=== PATIENT | female | born 1970 | race Two or more races ===

== ENCOUNTER 2023-04-30 00:12 | Inpatient (IN) | payer MEDICAID, OTHER ==
[~2023-04-30] VITALS: Ht 188 cm; Wt 214.3 kg
[2023-04-30] VITALS (8 sets, daily range): BP systolic 132; BP diastolic 82; PULSE 68–100; RESP 14–26; TEMP 98.4; O2SAT 96–98
[2023-04-30 01:23] LABS: Basophils # (auto) 0 10 ^3/uL (0-0.2); Basophils % (auto) 0.4 % (0.0-2.0); Eosinophils # (auto) 0.1 10 ^3/uL (0-0.8); Eosinophils % (auto) 1.9 % (0.0-7.0); Hematocrit 47.4 % (36.0-46.0); Hemoglobin 15.9 g/dL (12.2-16.2); Lymphocytes # (auto) 2.3 10 ^3/uL (0.4-5.4); Lymphocytes % (auto) 31.4 % (10.0-50.0); Mean Corpuscular Hemoglobin 31.6 pg (28.0-32.0); Mean Corpuscular Hgb Conc. 33.5 g/dL (32.0-36.0); Mean Corpuscular Volume 94.2 fL (80.0-100.0); Monocytes # (auto) 0.6 10 ^3/uL (0-1.3); Monocytes % (auto) 7.8 % (0.0-12.0); Neutrophils # (auto) 4.4 10 ^3/uL (1.6-8.6); Neutrophils % (auto) 58.5 % (37.0-80.0); Nucleated Red Blood Cells % 0.2 %; Red Blood Cells 5.03 10^6/uL (4.0-5.20); Red Cell Distribution Width 14.7 % (11.8-14.3); White Blood Cell 7.4 10^3/uL (4.4-10.8)
[2023-04-30 01:38] LABS: Albumin 3.6 g/dL (3.4-5.0); BUN/Creatinine Ratio 18.8 (10.0-20.0); Calcium 8.6 mg/dL (8.5-10.1); Magnesium 2.1 mg/dL (1.6-2.6); Potassium 3.8 mmol/L (3.5-5.1)
[2023-04-30 01:41] LABS: Total Protein 7.7 g/dL (6.4-8.2)
[2023-04-30] MEDS ORDERED: LORazepam 2MG/ML-1ML VIAL IV ONE (02:15)
[2023-04-30] MEDS ORDERED: ALBUTEROL SULF 2.5 MG/0.5ML(0.5%) NEB SOLN NEB ONE (05:45)
[2023-04-30] MEDS ORDERED: DexAMETHasone SOD PHOS 10MG/1ML VIAL INJ IV ONE (05:45)
[2023-04-30] MEDS ORDERED: METO25TA93 PO (08:29)
[2023-04-30] MEDS ORDERED: BICT1TAB PO (08:29)
[2023-04-30] MEDS ORDERED: ATOR40TA52 PO (08:29)
[2023-04-30] MEDS ORDERED: SPIR25TA8 PO (08:29)
[2023-04-30] MEDS ORDERED: APIX5TAB PO (08:29)
[2023-04-30] MEDS ORDERED: MONT-8 PO (08:29)
[2023-04-30] MEDS ORDERED: PREG100C PO (08:29)
[2023-04-30] MEDS ORDERED: METF500S3 PO (08:29)
[2023-04-30] MEDS ORDERED: BACL20TA PO (08:29)
[2023-04-30] MEDS ORDERED: TIOT17SP IN (08:31)
[2023-04-30] MEDS ORDERED: BUDE2SUS3 IN (08:31)
[2023-04-30 08:48] LABS: Urine Bacteria NONE SEEN /hpf (None Seen); Urine Blood Negative /uL (Negative); Urine Clarity Clear (Clear); Urine Color Yellow (Yellow); Urine Protein, UAD Negative (Negative); Urine Specific Gravity 1.017 (1.001-1.035); Urine Urobilinogen Normal (Negative); Urine WBC <1 /hpf (0 - 5); Urine pH 5.5 (5.0-8.0)
[2023-04-30] MEDS ORDERED: DEXTROSE (50%) 50ML SYRG IV PRN (09:00)
[2023-04-30] MEDS ORDERED: MORPHINE SULFATE INJ 2 MG/ml SYRG IV PRN (09:00)
[2023-04-30] MEDS ORDERED: METOCLOPRAMIDE HCL 5MG/ml INJ 2ml VIAL IV PRN (09:00)
[2023-04-30 09:34] LABS: Base Excess -2.2 mmol/L (-2.0-2.0)
[2023-04-30] MEDS ORDERED: METOPROLOL SUCCINATE XL 50 MG TAB PO SCH (10:00)
[2023-04-30] MEDS ORDERED: PREGABALIN 25 MG CAP PO ONE (10:00)
[2023-04-30] MEDS: MONTELUKAST SODIUM 10 MG TAB PO SCH ×2 (10:00→22:46)
[2023-04-30] MEDS: AZITHROMYCIN 500MG/ 250ML 250 ML IV SCH (10:01)
[2023-04-30] MEDS: cefTRIAXone 1GM/50ML D5W 50 ML IV SCH (10:01)
[2023-04-30] MEDS: PANTOPRAZOLE 40 MG/10 ML VIAL INJ IV SCH (10:02)
[2023-04-30] MEDS: APIXABAN 5 MG TAB PO SCH ×2 (10:03→22:46)
[2023-04-30] MEDS: SPIRONOLACTONE 25 MG TAB PO SCH (10:03)
[2023-04-30] MEDS: SODIUM CHLORIDE 0.9% 1,000 ML IV SCH (10:05)
[2023-04-30 10:12] LABS: INR 1.08 (0.9-1.15); Prothrombin Time 11.3 sec (9.3-11.8)
[2023-04-30] MEDS: ALBUTEROL SULF 2.5 MG/0.5ML(0.5%) NEB SOLN NEB SCH ×4 (10:15→23:04)
[2023-04-30] MEDS: IPRATROPIUM BROM 0.5 MG/2.5ML INH SOL NEB SCH ×4 (10:15→23:04)
[2023-04-30] MEDS: ACCU-CHEK COMFORT CURVE STRIP VI SCH ×3 (11:40→22:37)
[2023-04-30] MEDS: InsuLIN REG 1unit/0.01ml Soln (100units/ml) SC SCH ×3 (11:44→22:45)
[2023-04-30] MEDS: DexAMETHasone SOD PHOS 4 MG/1ML SDV INJ IV SCH ×2 (15:09→20:15)
[2023-04-30] MEDS: ATORVASTATIN 20 MG TAB PO SCH (22:46)
[2023-05-01] VITALS (12 sets, daily range): BP systolic 121–129; BP diastolic 65–98; PULSE 87–108; RESP 16–20; TEMP 97.3–97.7; O2SAT 94–98
[2023-05-01] MEDS: DexAMETHasone SOD PHOS 4 MG/1ML SDV INJ IV SCH ×4 (00:53→17:57)
[2023-05-01] MEDS: SODIUM CHLORIDE 0.9% 1,000 ML IV SCH ×2 (00:55→12:25)
[2023-05-01] MEDS: IPRATROPIUM BROM 0.5 MG/2.5ML INH SOL NEB SCH ×3 (02:00→21:02)
[2023-05-01] MEDS: ALBUTEROL SULF 2.5 MG/0.5ML(0.5%) NEB SOLN NEB SCH ×3 (02:00→21:02)
[2023-05-01] MEDS: ACETAMINOPHEN 325 MG TAB PO PRN ×2 (02:53→22:23)
[2023-05-01] MEDS: LORazepam 2MG/ML-1ML VIAL IV PRN (02:53)
[2023-05-01] MEDS ORDERED: CARVEDILOL 3.125 MG TAB PO ONE (03:45)
[2023-05-01] MEDS: ACCU-CHEK COMFORT CURVE STRIP VI SCH ×4 (06:16→22:00)
[2023-05-01] MEDS: InsuLIN REG 1unit/0.01ml Soln (100units/ml) SC SCH ×4 (06:26→22:35)
[2023-05-01] MEDS ORDERED: ALBUTEROL SULF 2.5 MG/0.5ML(0.5%) NEB SOLN ONE (06:49)
[2023-05-01] MEDS ORDERED: IPRATROPIUM BROM 0.5 MG/2.5ML INH SOL ONE (06:49)
[2023-05-01 07:00] LABS: Basophils # (auto) 0 10 ^3/uL (0-0.2); Basophils % (auto) 0.4 % (0.0-2.0); Eosinophils # (auto) 0 10 ^3/uL (0-0.8); Eosinophils % (auto) 0.5 % (0.0-7.0); Hematocrit 45.2 % (41.0-53.0); Hemoglobin 15.1 g/dL (13.5-17.5); Lymphocytes # (auto) 1.2 10 ^3/uL (0.4-5.4); Lymphocytes % (auto) 12.4 % (10.0-50.0); Mean Corpuscular Hemoglobin 32.2 pg (28.0-32.0); Mean Corpuscular Hgb Conc. 33.4 g/dL (32.0-36.0); Mean Corpuscular Volume 96.3 fL (80.0-100.0); Monocytes # (auto) 0.3 10 ^3/uL (0-1.3); Monocytes % (auto) 2.7 % (0.0-12.0); Neutrophils # (auto) 7.9 10 ^3/uL (1.6-8.6); Nucleated Red Blood Cells % 0.2 %; Red Blood Cells 4.69 10^6/uL (4.5-5.90); Red Cell Distribution Width 14.7 % (11.8-14.3); White Blood Cell 9.4 10^3/uL (4.4-10.8)
[2023-05-01] MEDS ORDERED: dilTIAZem 25 MG/5 ML VIAL IV ONE (07:00)
[2023-05-01 07:42] LABS: Potassium 4.5 mmol/L (3.5-5.1)
[2023-05-01 07:52] LABS: Albumin 3.3 g/dL (3.4-5.0); BUN/Creatinine Ratio 15.5 (10.0-20.0); Bilirubin, Total 0.9 mg/dL (0.2-1.0); Calcium 8.7 mg/dL (8.5-10.1); Total Protein 7.9 g/dL (6.4-8.2)
[2023-05-01] MEDS: SPIRONOLACTONE 25 MG TAB PO SCH (09:30)
[2023-05-01] MEDS: APIXABAN 5 MG TAB PO SCH ×2 (09:30→22:24)
[2023-05-01] MEDS: cefTRIAXone 1GM/50ML D5W 50 ML IV SCH (09:30)
[2023-05-01] MEDS: PANTOPRAZOLE 40 MG/10 ML VIAL INJ IV SCH (09:30)
[2023-05-01] MEDS: dilTIAZem HCL 60 MG TAB PO SCH ×2 (10:41→17:57)
[2023-05-01] MEDS: AZITHROMYCIN 500MG/ 250ML 250 ML IV SCH (10:45)
[2023-05-01] MEDS ORDERED: CARVEDILOL 3.125 MG TAB PO SCH (22:00)
[2023-05-01] MEDS: MONTELUKAST SODIUM 10 MG TAB PO SCH (22:00)
[2023-05-01] MEDS: ATORVASTATIN 20 MG TAB PO SCH (22:24)
[2023-05-01] MEDS: DOCUSATE SOD 100 MG CAP PO PRN (22:26)
[2023-05-02] VITALS (18 sets, daily range): BP systolic 116–148; BP diastolic 64–83; PULSE 68–115; RESP 14–20; TEMP 97.1–98.6; O2SAT 95–100
[2023-05-02] MEDS: DexAMETHasone SOD PHOS 4 MG/1ML SDV INJ IV SCH ×5 (00:15→23:12)
[2023-05-02] MEDS: dilTIAZem HCL 60 MG TAB PO SCH ×5 (00:15→21:46)
[2023-05-02] MEDS: IPRATROPIUM BROM 0.5 MG/2.5ML INH SOL NEB SCH ×4 (00:56→19:01)
[2023-05-02] MEDS: ALBUTEROL SULF 2.5 MG/0.5ML(0.5%) NEB SOLN NEB SCH ×4 (00:56→19:01)
[2023-05-02] MEDS: SODIUM CHLORIDE 0.9% 1,000 ML IV SCH ×2 (01:45→15:05)
[2023-05-02] MEDS: InsuLIN REG 1unit/0.01ml Soln (100units/ml) SC SCH ×4 (06:36→21:56)
[2023-05-02] MEDS: ACCU-CHEK COMFORT CURVE STRIP VI SCH ×4 (06:39→21:56)
[2023-05-02] MEDS: ACETAMINOPHEN 325 MG TAB PO PRN (07:04)
[2023-05-02 07:49] LABS: Basophils # (auto) 0 10 ^3/uL (0-0.2); Basophils % (auto) 0.1 % (0.0-2.0); Eosinophils # (auto) 0 10 ^3/uL (0-0.8); Hematocrit 44.3 % (41.0-53.0); Lymphocytes # (auto) 1.2 10 ^3/uL (0.4-5.4); Lymphocytes % (auto) 12.1 % (10.0-50.0); Mean Corpuscular Hgb Conc. 33.8 g/dL (32.0-36.0); Mean Corpuscular Volume 94.7 fL (80.0-100.0); Monocytes # (auto) 0.3 10 ^3/uL (0-1.3); Monocytes % (auto) 3.3 % (0.0-12.0); Neutrophils # (auto) 8.1 10 ^3/uL (1.6-8.6); Neutrophils % (auto) 84.5 % (37.0-80.0); Nucleated Red Blood Cells % 0.1 %; Red Blood Cells 4.68 10^6/uL (4.5-5.90); Red Cell Distribution Width 14.2 % (11.8-14.3); White Blood Cell 9.6 10^3/uL (4.4-10.8)
[2023-05-02 08:10] LABS: BUN/Creatinine Ratio 22.3 (10.0-20.0); Calcium 8.8 mg/dL (8.5-10.1)
[2023-05-02] MEDS: cefTRIAXone 1GM/50ML D5W 50 ML IV SCH (09:48)
[2023-05-02] MEDS: APIXABAN 5 MG TAB PO SCH ×2 (09:48→21:52)
[2023-05-02] MEDS: PANTOPRAZOLE 40 MG/10 ML VIAL INJ IV SCH (09:49)
[2023-05-02] MEDS: SPIRONOLACTONE 25 MG TAB PO SCH (09:49)
[2023-05-02] MEDS: DOCUSATE SOD 100 MG CAP PO PRN (10:49)
[2023-05-02] MEDS: AZITHROMYCIN 500MG/ 250ML 250 ML IV SCH (10:49)
[2023-05-02] MEDS ORDERED: BACLOFEN 10 MG TAB PO PRN (15:15)
[2023-05-02] MEDS ORDERED: DIGOXIN (250MCG/ML) 2 ML AMPULE IV ONE (16:30)
[2023-05-02] MEDS ORDERED: dilTIAZem 120MG ER CAP PO SCH (18:00)
[2023-05-02 18:01] LABS: Cholesterol 136 mg/dL (< 200)
[2023-05-02 18:04] LABS: HDL Cholesterol 48 mg/dL (40-59); LDL Cholesterol 81 mg/dL (< 100); Triglycerides 78 mg/dL (< 150)
[2023-05-02] MEDS: ATORVASTATIN 20 MG TAB PO SCH (21:52)
[2023-05-02] MEDS: MONTELUKAST SODIUM 10 MG TAB PO SCH (21:52)
[2023-05-02] MEDS ORDERED: AMIODARONE HCL 200 MG TAB PO SCH (22:00)
[2023-05-03] VITALS (18 sets, daily range): BP systolic 115–137; BP diastolic 63–79; PULSE 63–115; RESP 18–20; TEMP 97.7–98.3; O2SAT 94–100
[2023-05-03] MEDS: ALBUTEROL SULF 2.5 MG/0.5ML(0.5%) NEB SOLN NEB SCH ×4 (00:19→19:25)
[2023-05-03] MEDS: IPRATROPIUM BROM 0.5 MG/2.5ML INH SOL NEB SCH ×4 (00:19→19:25)
[2023-05-03] MEDS: SODIUM CHLORIDE 0.9% 1,000 ML IV SCH ×3 (05:30→23:27)
[2023-05-03] MEDS: dilTIAZem HCL 60 MG TAB PO SCH ×4 (05:31→22:21)
[2023-05-03] MEDS: LORazepam 2MG/ML-1ML VIAL IV PRN ×2 (05:31→22:19)
[2023-05-03] MEDS: DexAMETHasone SOD PHOS 4 MG/1ML SDV INJ IV SCH ×4 (05:31→23:27)
[2023-05-03] MEDS: ACCU-CHEK COMFORT CURVE STRIP VI SCH ×4 (05:32→22:21)
[2023-05-03] MEDS: InsuLIN REG 1unit/0.01ml Soln (100units/ml) SC SCH ×4 (05:38→22:27)
[2023-05-03] MEDS: cefTRIAXone 1GM/50ML D5W 50 ML IV SCH (08:51)
[2023-05-03] MEDS: APIXABAN 5 MG TAB PO SCH ×2 (10:10→22:21)
[2023-05-03] MEDS: SPIRONOLACTONE 25 MG TAB PO SCH (10:11)
[2023-05-03] MEDS: AZITHROMYCIN 500MG/ 250ML 250 ML IV SCH (10:11)
[2023-05-03] MEDS: PANTOPRAZOLE 40 MG/10 ML VIAL INJ IV SCH (10:11)
[2023-05-03] MEDS: DIGOXIN 0.125 MG TAB PO SCH (10:11)
[2023-05-03] MEDS: MONTELUKAST SODIUM 10 MG TAB PO SCH (22:21)
[2023-05-03] MEDS: ATORVASTATIN 20 MG TAB PO SCH (22:21)
[2023-05-04] VITALS (13 sets, daily range): BP systolic 125–147; BP diastolic 71–96; PULSE 60–89; RESP 19–23; TEMP 97.7–98.3; O2SAT 95–100
[2023-05-04] MEDS: ACETAMINOPHEN 325 MG TAB PO PRN (03:21)
[2023-05-04] MEDS: dilTIAZem HCL 60 MG TAB PO SCH ×4 (06:14→22:21)
[2023-05-04] MEDS: DexAMETHasone SOD PHOS 4 MG/1ML SDV INJ IV SCH ×3 (06:14→22:21)
[2023-05-04] MEDS: ACCU-CHEK COMFORT CURVE STRIP VI SCH ×4 (06:15→22:30)
[2023-05-04] MEDS: InsuLIN REG 1unit/0.01ml Soln (100units/ml) SC SCH ×4 (06:26→22:33)
[2023-05-04] MEDS: IPRATROPIUM BROM 0.5 MG/2.5ML INH SOL NEB SCH ×3 (07:42→18:49)
[2023-05-04] MEDS: ALBUTEROL SULF 2.5 MG/0.5ML(0.5%) NEB SOLN NEB SCH ×3 (07:42→18:49)
[2023-05-04] MEDS: LORazepam 2MG/ML-1ML VIAL IV PRN (09:01)
[2023-05-04] MEDS: PANTOPRAZOLE 40 MG/10 ML VIAL INJ IV SCH (09:01)
[2023-05-04] MEDS: cefTRIAXone 1GM/50ML D5W 50 ML IV SCH (09:01)
[2023-05-04] MEDS: SPIRONOLACTONE 25 MG TAB PO SCH (09:01)
[2023-05-04] MEDS: DOCUSATE SOD 100 MG CAP PO PRN (09:01)
[2023-05-04] MEDS: APIXABAN 5 MG TAB PO SCH ×2 (09:02→22:21)
[2023-05-04] MEDS: DIGOXIN 0.125 MG TAB PO SCH (09:02)
[2023-05-04] MEDS ORDERED: METH4PAK PO (10:16)
[2023-05-04] MEDS ORDERED: AZIT-81 PO (10:16)
[2023-05-04] MEDS: diphenhdrAMINE HCL 50 MG/1 ML VL IV PRN ×2 (12:14→22:20)
[2023-05-04] MEDS: SODIUM CHLORIDE 0.9% 1,000 ML IV SCH (17:32)
[2023-05-04] MEDS: MONTELUKAST SODIUM 10 MG TAB PO SCH (22:21)
[2023-05-04] MEDS: ATORVASTATIN 20 MG TAB PO SCH (22:30)
[2023-05-04] MEDS ORDERED: DEXTROSE (50%) 50ML SYRG IV PRN (23:00)
[2023-05-05] VITALS (11 sets, daily range): BP systolic 116–144; BP diastolic 73–78; PULSE 58–94; RESP 16–20; TEMP 97.6–98.1; O2SAT 94–100
[2023-05-05] MEDS: ALBUTEROL SULF 2.5 MG/0.5ML(0.5%) NEB SOLN NEB SCH ×3 (00:48→11:11)
[2023-05-05] MEDS: IPRATROPIUM BROM 0.5 MG/2.5ML INH SOL NEB SCH ×3 (00:48→11:11)
[2023-05-05] MEDS ORDERED: ACCU-CHEK COMFORT CURVE STRIP VI SCH (02:00)
[2023-05-05] MEDS: ACCU-CHEK COMFORT CURVE STRIP VI SCH ×5 (02:14→15:53)
[2023-05-05] MEDS: InsuLIN REG 1unit/0.01ml Soln (100units/ml) SC SCH ×5 (02:19→15:53)
[2023-05-05] MEDS: dilTIAZem HCL 60 MG TAB PO SCH ×2 (06:15→11:33)
[2023-05-05] MEDS: diphenhdrAMINE HCL 50 MG/1 ML VL IV PRN (06:17)
[2023-05-05] MEDS: SODIUM CHLORIDE 0.9% 1,000 ML IV SCH (06:17)
[2023-05-05] MEDS: DexAMETHasone SOD PHOS 4 MG/1ML SDV INJ IV SCH ×2 (06:17→13:39)
[2023-05-05 07:17] LABS: Basos 0 % (Not Estab.); Eos 0 % (Not Estab.); Hematocrit 46.6 % (37.5-51.0); Hemoglobin 15.4 g/dL (13.0-17.7); Immature Granulocytes 0 % (Not Estab.); Lymphs 15 % (Not Estab.); Lymphs (Absolute) 0.8 x10E3/uL (0.7-3.1); MCH 31.5 pg (26.6-33.0); MCV 95 fL (79-97); Monocytes 1 % (Not Estab.); Monocytes (Absolute) 0.1 x10E3/uL (0.1-0.9); Neutrophils 84 % (Not Estab.); Neutrophils (Absolute) 4.4 x10E3/uL (1.4-7.0); Platelets 151 x10E3/uL (150-450); RBC 4.89 x10E6/uL (4.14-5.80); RDW 12.9 % (11.6-15.4); WBC 5.3 x10E3/uL (3.4-10.8)
[2023-05-05] MEDS: LORazepam 2MG/ML-1ML VIAL IV PRN (08:35)
[2023-05-05] MEDS: APIXABAN 5 MG TAB PO SCH (08:36)
[2023-05-05] MEDS: SPIRONOLACTONE 25 MG TAB PO SCH (08:36)
[2023-05-05] MEDS: PANTOPRAZOLE 40 MG/10 ML VIAL INJ IV SCH (08:36)
[2023-05-05] MEDS: DIGOXIN 0.125 MG TAB PO SCH (08:37)
[2023-05-05] MEDS ORDERED: BIKTARVY PO SCH (10:00)
[2023-05-07] MEDS ORDERED: DILT60TA28 PO (01:26)
[2023-05-09] MEDS ORDERED: AMIODARONE HCL 200 MG TAB PO SCH (22:00)
== END 2023-05-05 15:50 | disposition hospice, home (50) | DRG 469 ==
LOC: EDSEX → EDBD 00:12 → EDSEX 00:12 → ER 00:12 → TELE 09:10 → TELE-WESTW 05-01 15:50
PROVIDERS: ADMIT Internal Medicine; ATTEND Internal Medicine
DX: N17.9 Acute kidney failure, unspecified (principal); E87.29 Other acidosis; J15.9 Unspecified bacterial pneumonia; I13.0 Hypertensive heart and chronic kidney disease with heart failure and stage 1 through stage 4 chronic kidney disease, or unspecified chronic kidney disease; J44.0 Chronic obstructive pulmonary disease with (acute) lower respiratory infection; E11.22 Type 2 diabetes mellitus with diabetic chronic kidney disease; I50.32 Chronic diastolic (congestive) heart failure; J44.1 Chronic obstructive pulmonary disease with (acute) exacerbation; Z68.43 Body mass index [BMI] 50.0-59.9, adult; E11.42 Type 2 diabetes mellitus with diabetic polyneuropathy; E11.40 Type 2 diabetes mellitus with diabetic neuropathy, unspecified; R06.03 Acute respiratory distress; E87.8 Other disorders of electrolyte and fluid balance, not elsewhere classified; I48.91 Unspecified atrial fibrillation; E78.5 Hyperlipidemia, unspecified; N18.9 Chronic kidney disease, unspecified; E66.01 Morbid (severe) obesity due to excess calories; Z21 Asymptomatic human immunodeficiency virus [HIV] infection status; E11.65 Type 2 diabetes mellitus with hyperglycemia; Z79.899 Other long term (current) drug therapy; Z79.01 Long term (current) use of anticoagulants; Z95.2 Presence of prosthetic heart valve; Z79.84 Long term (current) use of oral hypoglycemic drugs; Z51.5 Encounter for palliative care; Z87.891 Personal history of nicotine dependence
CPT/HCPCS: 36415; 36600; 70450; 71045; 80048; 80053; 80061; 81001; 82805; 82962; 83036; 83605; 83735; 83880; 84443; 84484; 84702; 85025; 85610; 86360; 87070; 87205; 93005; 93306; 93886; 93970; 94640; 96374; 96375; 97110; 97116; 97163; 97530; C9113; G0378; J0696; J1100; J1815

== ENCOUNTER 2023-05-09 02:31 | Inpatient (IN) | payer MEDICAID, OTHER ==
[~2023-05-09] VITALS: Ht 182.9 cm; Wt 214.7 kg
[~2023-05-09 02:31] MED LIST: APIX5TAB PO; ATOR40TA52 PO; AZIT-81 PO; BACL20TA PO; BICT1TAB PO; BUDE2SUS3 IN; DILT60TA28 PO; METF500S3 PO; METH4PAK PO; METO25TA93 PO; MONT-8 PO; PREG100C PO; SPIR25TA8 PO; TIOT17SP IN
[2023-05-09 03:23] LABS: Basophils # (auto) 0 10 ^3/uL (0-0.2); Basophils % (auto) 0.5 % (0.0-2.0); Eosinophils # (auto) 0.1 10 ^3/uL (0-0.8); Eosinophils % (auto) 0.7 % (0.0-7.0); Hematocrit 46.9 % (36.0-46.0); Lymphocytes # (auto) 2.4 10 ^3/uL (0.4-5.4); Lymphocytes % (auto) 22.6 % (10.0-50.0); Mean Corpuscular Hemoglobin 32.1 pg (28.0-32.0); Mean Corpuscular Hgb Conc. 34.1 g/dL (32.0-36.0); Mean Corpuscular Volume 94.1 fL (80.0-100.0); Monocytes # (auto) 0.9 10 ^3/uL (0-1.3); Monocytes % (auto) 8.9 % (0.0-12.0); Neutrophils % (auto) 67.3 % (37.0-80.0); Nucleated Red Blood Cells % 0.2 %; Red Blood Cells 4.98 10^6/uL (4.0-5.20); Red Cell Distribution Width 14.4 % (11.8-14.3); White Blood Cell 10.4 10^3/uL (4.4-10.8)
[2023-05-09 03:35] LABS: Albumin 2.9 g/dL (3.4-5.0); Calcium 7.9 mg/dL (8.5-10.1)
[2023-05-09 03:38] LABS: INR 1.09 (0.9-1.15); Partial Thromboplastin Time 27.1 SEC (24.5-34.5); Prothrombin Time 11.4 sec (9.3-11.8)
[2023-05-09 03:39] LABS: Bilirubin, Total 0.7 mg/dL (0.2-1.0); Total Protein 6.5 g/dL (6.4-8.2)
[2023-05-09 04:25] VITALS: PULSE 100; RESP 20; O2SAT 97
[2023-05-09 08:00] VITALS: PULSE 89; RESP 18; O2SAT 96
[2023-05-09 09:37] LABS: Urine Bacteria NONE SEEN /hpf (None Seen); Urine Blood Negative /uL (Negative); Urine Clarity Clear (Clear); Urine Color Colorless (Yellow); Urine Protein, UAD Negative (Negative); Urine Specific Gravity 1.027 (1.001-1.035); Urine Urobilinogen Normal (Negative); Urine WBC 1 /hpf (0 - 5)
[2023-05-09] MEDS ORDERED: InsuLIN REG 1unit/0.01ml Soln (100units/ml) IV ONE (11:15)
[2023-05-09] MEDS ORDERED: ONDANSETRON HCL 4 MG/2 ML VIAL IV ONE (11:15)
[2023-05-09] MEDS ORDERED: NITROGLYCERIN 0.4 MG SL TAB SL PRN (13:00)
[2023-05-09] MEDS ORDERED: MORPHINE SULFATE INJ 2 MG/ml SYRG IV PRN (13:00)
[2023-05-09] MEDS ORDERED: DOCUSATE SOD 100 MG CAP PO PRN (13:00)
[2023-05-09] MEDS ORDERED: HYDROcodone-ACET 5/325MG TAB PO PRN (13:00)
[2023-05-09] MEDS: ACETAMINOPHEN 325 MG TAB PO PRN (13:11)
[2023-05-09] MEDS ORDERED: ALBUTEROL SULF 2.5 MG/0.5ML(0.5%) NEB SOLN NEB PRN (14:30)
[2023-05-09] MEDS ORDERED: IPRATROPIUM BROM 0.5 MG/2.5ML INH SOL NEB PRN (14:30)
[2023-05-09 15:49] VITALS: BP 134/94; PULSE 83; RESP 20; O2SAT 95
[2023-05-09 17:21] VITALS: O2SAT 100
[2023-05-09] MEDS ORDERED: DEXTROSE (50%) 50ML SYRG IV PRN (17:30)
[2023-05-09] MEDS: dilTIAZem HCL 60 MG TAB PO SCH (18:16)
[2023-05-09 19:40] VITALS: PULSE 95; RESP 18; O2SAT 97
[2023-05-09] MEDS: ATORVASTATIN 20 MG TAB PO SCH (21:40)
[2023-05-09] MEDS: APIXABAN 5 MG TAB PO SCH (21:40)
[2023-05-09] MEDS: PREGABALIN 25 MG CAP PO SCH (21:40)
[2023-05-09] MEDS: InsuLIN REG 1unit/0.01ml Soln (100units/ml) SC SCH (21:45)
[2023-05-09] MEDS: ACCU-CHEK COMFORT CURVE STRIP VI SCH (21:45)
[2023-05-10] VITALS (10 sets, daily range): BP systolic 106–129; BP diastolic 65–79; PULSE 46–93; RESP 16–20; TEMP 97.6–98.6; O2SAT 90–100
[2023-05-10] MEDS: dilTIAZem HCL 60 MG TAB PO SCH ×4 (01:14→17:28)
[2023-05-10 06:10] LABS: Basophils # (auto) 0 10 ^3/uL (0-0.2); Basophils % (auto) 0.2 % (0.0-2.0); Eosinophils # (auto) 0.2 10 ^3/uL (0-0.8); Eosinophils % (auto) 1.5 % (0.0-7.0); Hematocrit 47.3 % (36.0-46.0); Hemoglobin 15.7 g/dL (12.2-16.2); Lymphocytes # (auto) 2.7 10 ^3/uL (0.4-5.4); Lymphocytes % (auto) 24.6 % (10.0-50.0); Mean Corpuscular Hemoglobin 31.3 pg (28.0-32.0); Mean Corpuscular Hgb Conc. 33.1 g/dL (32.0-36.0); Mean Corpuscular Volume 94.5 fL (80.0-100.0); Monocytes # (auto) 0.7 10 ^3/uL (0-1.3); Monocytes % (auto) 6.6 % (0.0-12.0); Neutrophils # (auto) 7.3 10 ^3/uL (1.6-8.6); Neutrophils % (auto) 67.1 % (37.0-80.0); Nucleated Red Blood Cells % 0.3 %; Red Blood Cells 5.01 10^6/uL (4.0-5.20); Red Cell Distribution Width 14.4 % (11.8-14.3); White Blood Cell 10.9 10^3/uL (4.4-10.8)
[2023-05-10 06:24] LABS: Albumin 2.7 g/dL (3.4-5.0); Calcium 8.2 mg/dL (8.5-10.1); Potassium 3.9 mmol/L (3.5-5.1)
[2023-05-10 06:30] LABS: BUN/Creatinine Ratio 34.3 (10.0-20.0); Bilirubin, Total 1.6 mg/dL (0.2-1.0); Total Protein 6.4 g/dL (6.4-8.2)
[2023-05-10] MEDS: InsuLIN REG 1unit/0.01ml Soln (100units/ml) SC SCH ×4 (06:47→21:57)
[2023-05-10] MEDS: APIXABAN 5 MG TAB PO SCH ×2 (09:33→21:47)
[2023-05-10] MEDS: SPIRONOLACTONE 25 MG TAB PO SCH (09:33)
[2023-05-10] MEDS: MONTELUKAST SODIUM 10 MG TAB PO SCH (09:34)
[2023-05-10] MEDS: PREGABALIN 25 MG CAP PO SCH ×2 (09:34→21:47)
[2023-05-10] MEDS: METOPROLOL SUCCINATE XL 50 MG TAB PO SCH (09:37)
[2023-05-10] MEDS: ACCU-CHEK COMFORT CURVE STRIP VI SCH ×3 (11:44→21:49)
[2023-05-10] MEDS: LORazepam 0.5 MG TAB PO PRN ×2 (12:26→21:48)
[2023-05-10] MEDS: LACTULOSE 20Gm/30ML SOLN PO PRN (12:26)
[2023-05-10] MEDS: DOCUSATE SOD 100 MG CAP PO SCH (21:47)
[2023-05-10] MEDS: ATORVASTATIN 20 MG TAB PO SCH (21:47)
[2023-05-11] VITALS (9 sets, daily range): BP systolic 107–153; BP diastolic 66–81; PULSE 70–115; RESP 18–22; TEMP 98–99.5; O2SAT 91–98
[2023-05-11] MEDS: dilTIAZem HCL 60 MG TAB PO SCH ×4 (00:19→17:53)
[2023-05-11] MEDS: ACCU-CHEK COMFORT CURVE STRIP VI SCH ×4 (05:48→22:47)
[2023-05-11] MEDS: InsuLIN REG 1unit/0.01ml Soln (100units/ml) SC SCH ×4 (05:54→22:53)
[2023-05-11 06:24] LABS: BUN/Creatinine Ratio 28.3 (10.0-20.0); Calcium 8.2 mg/dL (8.5-10.1); Magnesium 2.2 mg/dL (1.6-2.6); Potassium 3.8 mmol/L (3.5-5.1)
[2023-05-11] MEDS: DOCUSATE SOD 100 MG CAP PO SCH ×2 (10:00→22:45)
[2023-05-11] MEDS: MONTELUKAST SODIUM 10 MG TAB PO SCH (10:01)
[2023-05-11] MEDS: METOPROLOL SUCCINATE XL 50 MG TAB PO SCH (10:02)
[2023-05-11] MEDS: PREGABALIN 25 MG CAP PO SCH ×2 (10:02→22:46)
[2023-05-11] MEDS: APIXABAN 5 MG TAB PO SCH ×2 (10:03→22:45)
[2023-05-11] MEDS: SPIRONOLACTONE 25 MG TAB PO SCH (10:03)
[2023-05-11 10:26] LABS: Hepatitis B Surface Antigen Negative (Negative); Hepatitis C Antibody Negative (Negative)
[2023-05-11] MEDS ORDERED: SENNA 8.6 MG TAB PO PRN (16:30)
[2023-05-11] MEDS: LACTULOSE 20Gm/30ML SOLN PO PRN (16:41)
[2023-05-11] MEDS: ACETAMINOPHEN 325 MG TAB PO PRN (16:48)
[2023-05-11] MEDS: INSULIN LISPRO (HUMAN) 100 UNITS/ML ML SC SCH (17:59)
[2023-05-11] MEDS: ATORVASTATIN 20 MG TAB PO SCH (22:46)
[2023-05-11] MEDS: LORazepam 0.5 MG TAB PO PRN (22:47)
[2023-05-12] VITALS (10 sets, daily range): BP systolic 103–144; BP diastolic 57–77; PULSE 50–94; RESP 16–20; TEMP 96.3–98.2; O2SAT 64–98
[2023-05-12] MEDS: dilTIAZem HCL 60 MG TAB PO SCH ×4 (00:05→17:33)
[2023-05-12 05:09] LABS: Hematocrit 46.2 % (36.0-46.0); Hemoglobin 15.6 g/dL (12.2-16.2); Mean Corpuscular Hemoglobin 31.7 pg (28.0-32.0); Mean Corpuscular Hgb Conc. 33.8 g/dL (32.0-36.0); Mean Corpuscular Volume 93.9 fL (80.0-100.0); Red Blood Cells 4.92 10^6/uL (4.0-5.20); Red Cell Distribution Width 14.2 % (11.8-14.3); White Blood Cell 10.7 10^3/uL (4.4-10.8)
[2023-05-12 05:37] LABS: BUN/Creatinine Ratio 25.5 (10.0-20.0); Calcium 8.3 mg/dL (8.5-10.1); Potassium 4.2 mmol/L (3.5-5.1)
[2023-05-12 05:39] LABS: Basophils % (manual) 0 (0.0-2.0); Blast Cells 0; Metamyelocytes % 0; Promyelocytes % 0
[2023-05-12] MEDS: ACCU-CHEK COMFORT CURVE STRIP VI SCH ×4 (06:15→22:06)
[2023-05-12] MEDS: InsuLIN REG 1unit/0.01ml Soln (100units/ml) SC SCH ×3 (06:21→16:44)
[2023-05-12] MEDS: INSULIN LISPRO (HUMAN) 100 UNITS/ML ML SC SCH (06:23)
[2023-05-12] MEDS ORDERED: INSULIN LANTUS (GLARGINE) 1 /0.01ml (100units/ml) SC SCH (07:00)
[2023-05-12] MEDS: ACETAMINOPHEN 325 MG TAB PO PRN ×2 (07:51→16:42)
[2023-05-12 08:33] LABS: Band Neutrophils % (manual) 9; Eosinophils % (manual) 1 (0-7); Large Platelets FEW; Lymphocytes % (manual) 24 (10.0-50.0); Monocytes % (manual) 9 (0-12); Myelocytes % 1; Platelet Estimate Decreased; Reactive Lymphocytes 1
[2023-05-12] MEDS: APIXABAN 5 MG TAB PO SCH ×2 (10:17→22:05)
[2023-05-12] MEDS: DOCUSATE SOD 100 MG CAP PO SCH ×2 (10:17→22:05)
[2023-05-12] MEDS: METOPROLOL SUCCINATE XL 50 MG TAB PO SCH (10:18)
[2023-05-12] MEDS: PREGABALIN 25 MG CAP PO SCH ×2 (10:20→22:06)
[2023-05-12] MEDS: MONTELUKAST SODIUM 10 MG TAB PO SCH (10:20)
[2023-05-12] MEDS: SPIRONOLACTONE 25 MG TAB PO SCH (10:20)
[2023-05-12] MEDS ORDERED: DEXTROSE (50%) 50ML SYRG IV PRN (10:30)
[2023-05-12] MEDS ORDERED: InsuLIN REG 1unit/0.01ml Soln (100units/ml) SC SCH (22:00)
[2023-05-12] MEDS: ATORVASTATIN 20 MG TAB PO SCH (22:05)
[2023-05-12] MEDS: LORazepam 0.5 MG TAB PO PRN (23:26)
[2023-05-13] MEDS: dilTIAZem HCL 60 MG TAB PO SCH ×4 (00:07→17:05)
[2023-05-13 05:00] VITALS: BP 126/90; PULSE 93; RESP 16; TEMP 98.4; O2SAT 98
[2023-05-13 06:06] LABS: Basophils # (auto) 0 10 ^3/uL (0-0.2); Basophils % (auto) 0.2 % (0.0-2.0); Eosinophils # (auto) 0.1 10 ^3/uL (0-0.8); Eosinophils % (auto) 0.9 % (0.0-7.0); Hematocrit 44.3 % (36.0-46.0); Lymphocytes # (auto) 2.1 10 ^3/uL (0.4-5.4); Lymphocytes % (auto) 23.3 % (10.0-50.0); Mean Corpuscular Hemoglobin 31.6 pg (28.0-32.0); Mean Corpuscular Volume 92.9 fL (80.0-100.0); Monocytes # (auto) 0.8 10 ^3/uL (0-1.3); Monocytes % (auto) 9.3 % (0.0-12.0); Neutrophils % (auto) 66.3 % (37.0-80.0); Nucleated Red Blood Cells % 0.1 %; Red Blood Cells 4.77 10^6/uL (4.0-5.20); Red Cell Distribution Width 13.8 % (11.8-14.3); White Blood Cell 9.1 10^3/uL (4.4-10.8)
[2023-05-13 06:07] LABS: Anion Gap 8 (5-15); BUN/Creatinine Ratio 23.7 (10.0-20.0); Blood Urea Nitrogen 28 mg/dL (7-18); Carbon Dioxide 28 mmol/L (21-32); Chloride 100 mmol/L (98-107); GFR African American 62 mL/min; GFR Non-African American 51 mL/min; Glucose 312 mg/dL (74-106); Sodium 136 mmol/L (136-145)
[2023-05-13] MEDS: ACCU-CHEK COMFORT CURVE STRIP VI SCH ×3 (06:12→17:05)
[2023-05-13] MEDS: InsuLIN REG 1unit/0.01ml Soln (100units/ml) SC SCH ×3 (06:18→17:08)
[2023-05-13] MEDS ORDERED: INSULIN LANTUS (GLARGINE) 1 /0.01ml (100units/ml) SC SCH (07:00)
[2023-05-13 08:00] VITALS: PULSE 76; RESP 17; O2SAT 98
[2023-05-13] MEDS: DOCUSATE SOD 100 MG CAP PO SCH (10:12)
[2023-05-13] MEDS: PREGABALIN 25 MG CAP PO SCH (10:13)
[2023-05-13] MEDS: SPIRONOLACTONE 25 MG TAB PO SCH (10:13)
[2023-05-13] MEDS: ACETAMINOPHEN 325 MG TAB PO PRN (10:13)
[2023-05-13] MEDS: APIXABAN 5 MG TAB PO SCH (10:13)
[2023-05-13] MEDS: METOPROLOL SUCCINATE XL 50 MG TAB PO SCH (10:13)
[2023-05-13] MEDS: MONTELUKAST SODIUM 10 MG TAB PO SCH (10:14)
[2023-05-13 10:17] VITALS: O2SAT 97
[2023-05-13 13:16] VITALS: BP 129/74; PULSE 77; RESP 20; TEMP 98.2; O2SAT 98
[2023-05-13 16:15] VITALS: BP 129/74; PULSE 77; RESP 18; TEMP 98.2; O2SAT 98
[2023-05-13 16:46] VITALS: BP 124/77; PULSE 87; RESP 19; TEMP 98.4; O2SAT 96
== END 2023-05-13 17:55 | disposition hospice, home (50) | DRG 420 ==
LOC: EDBD 02:31 → EDSEX 02:31 → ER 02:31 → TELE 12:49 → TELE-CENTR 22:37
PROVIDERS: ADMIT Internal Medicine Pulmonary Disease; ATTEND Internal Medicine
DX: E11.65 Type 2 diabetes mellitus with hyperglycemia (principal); E11.618 Type 2 diabetes mellitus with other diabetic arthropathy; I13.0 Hypertensive heart and chronic kidney disease with heart failure and stage 1 through stage 4 chronic kidney disease, or unspecified chronic kidney disease; E11.22 Type 2 diabetes mellitus with diabetic chronic kidney disease; I50.9 Heart failure, unspecified; Z68.45 Body mass index [BMI] 70 or greater, adult; E86.0 Dehydration; I48.20 Chronic atrial fibrillation, unspecified; F41.9 Anxiety disorder, unspecified; Z21 Asymptomatic human immunodeficiency virus [HIV] infection status; E66.01 Morbid (severe) obesity due to excess calories; J44.9 Chronic obstructive pulmonary disease, unspecified; R09.89 Other specified symptoms and signs involving the circulatory and respiratory systems; Z87.01 Personal history of pneumonia (recurrent); K59.00 Constipation, unspecified; N18.9 Chronic kidney disease, unspecified; Z95.2 Presence of prosthetic heart valve
CPT/HCPCS: 36415; 71045; 80048; 80053; 81001; 82962; 83735; 83880; 84443; 84484; 85007; 85025; 85027; 85610; 85730; 86803; 87081; 87340; 93005; 97110; 97163; 97530; G0378; J1815; J2405